=== PATIENT | female | born 1950 | race Caucasian/White ===

== ENCOUNTER 2024-08-04 08:53 | Outpatient (CLI) | payer MEDICARE, OTHER, SELFPAY | END 2024-08-04 08:54 | disposition home or self-care (01) | LOC: CHSIMG 09:00 | PROVIDERS: Visit Provider Orthopaedic Surgery | DX: M25.561 Pain in right knee (principal); M25.562 Pain in left knee | CPT/HCPCS: 73564 ==

== ENCOUNTER 2024-08-18 08:32 | Outpatient (CLI) | payer MEDICARE, OTHER, SELFPAY ==
--- NOTE | ~2024-08-18 | XR_ITS ---
Right ankle Technique: AP, oblique, and lateral views were obtained. Clinical History: Pain Findings: No acute fracture or dislocation is seen. Osseous alignment is anatomic. Ankle mortise and other visualized joint spaces are preserved. Plantar calcaneal spur noted. Soft tissues are otherwise unremarkable. Impression: Plantar calcaneal spur. No acute abnormality. Reviewed, dictated and finalized at location . Impression: Plantar calcaneal spur. No acute abnormality.
== END 2024-08-18 08:33 | disposition home or self-care (01) ==
PROVIDERS: PCP Orthopaedic Surgery; Visit Provider Orthopaedic Surgery
DX: M25.571 Pain in right ankle and joints of right foot (principal); M77.31 Calcaneal spur, right foot
CPT/HCPCS: 73610

== ENCOUNTER 2024-09-02 14:30 | Outpatient (RCR) | payer MEDICARE, OTHER, SELFPAY | END 2024-09-09 14:07 | disposition home or self-care (01) | LOC: ANHDMC 14:30 | PROVIDERS: Visit Provider Internal Medicine Endocrinology, Diabetes & Metabolism | DX: E11.9 Type 2 diabetes mellitus without complications (principal); Z71.89 Other specified counseling | CPT/HCPCS: G0108; G0109 ==

== ENCOUNTER 2025-02-16 10:45 | Outpatient (RCR) | payer MEDICARE, OTHER, SELFPAY ==
[2025-01-20 09:30] VITALS: BMI 36.5
[2025-01-20 09:32] VITALS: BMI 36.5
[2025-02-16 10:45] VITALS: BMI 36.5
== END 2025-04-12 09:34 | disposition home or self-care (01) ==
LOC: ANHDMC 10:45
PROVIDERS: PCP Orthopaedic Surgery; Visit Provider Internal Medicine Endocrinology, Diabetes & Metabolism
DX: E11.65 Type 2 diabetes mellitus with hyperglycemia (principal); Z71.3 Dietary counseling and surveillance
CPT/HCPCS: 97803

== ENCOUNTER 2025-08-17 13:34 | Outpatient (RCR) | payer MEDICARE, OTHER, SELFPAY ==
[2025-08-17 13:30] VITALS: BMI 36.1
[2025-08-17 13:38] VITALS: BMI 36.1
--- NOTE | 2025-08-17 17:14 | PCDIET ---
Initial MNT appts per insurance utilized for 2024. Will benefit from annual follow up.
== END 2025-11-08 12:43 | disposition home or self-care (01) ==
LOC: ANHDMC 13:34
PROVIDERS: PCP Orthopaedic Surgery; Visit Provider Internal Medicine Endocrinology, Diabetes & Metabolism
DX: E11.65 Type 2 diabetes mellitus with hyperglycemia (principal); Z71.3 Dietary counseling and surveillance
CPT/HCPCS: 97803